=== PATIENT | female | born 1955 | race Caucasian/White ===

== ENCOUNTER 2016-12-12 08:47 | Inpatient (IN) ==
[2016-12-12] MEDS ORDERED: SODIUM CHLORIDE 0.9% 250 ML IV PRN (10:12)
[2016-12-12] MEDS ORDERED: traMADol 50 MG TABLET PO PRN (10:37)
[2016-12-12] MEDS: ALBUTEROL 2.5 MG/3 ML NEB RESP TX SCH ×3 (11:22→20:11)
[2016-12-12 11:27] LABS: Basophils % 0.2 % (0.0-0.8); Eosinophils # 0.2 10*3/uL (0.0-0.87); Eosinophils % 2.8 % (0.00-10.9); Immature Granulocytes % 0.5 %; Immature Granulocytes Absolute 0.03 #; Lymphocytes % 15.6 % (21.3-54.2); Mean Corpuscular HGB Conc 25.8 GM/DL (32-36); Mean Corpuscular Hemoglobin 17 PG (27-34); Mean Corpuscular Volume 64.1 FL (87-102); Mean Platelet Volume 9.2 FL (9.6-12.0); Monocytes # 0.6 10*3/uL (0.11-0.8); Monocytes % 9.6 % (1.7-12.7); Neutrophils # 4.4 10*3/uL (1.4-7.4); Neutrophils % 71.3 % (38.7-73.9); Platelet Count 378 10*3/uL (130-400); Red Blood Count 2.84 10*6/uL (3.8-5.5); Red Cell Distribution Width 21.5 % (9.3-17.3); White Blood Count 6.2 10*3/uL (4.5-13.71)
[2016-12-12 11:30] LABS: Hematocrit 18.2 VOL% (35.7-47.0); Hemoglobin 4.7 GM/DL (12.0-16.0)
[2016-12-12 11:31] LABS: Albumin 3.5 G/DL (3.4-5.0); Bilirubin,Total 0.4 MG/DL (0.2-1.0); Calcium 9.1 MG/DL (8.5-10.1); Osmolality,Calculated 276.5 MOS/KG (273-304); Total Protein 6.5 G/DL (6.4-8.3)
[2016-12-12 11:38] LABS: Free T4 (Free Thyroxine) 1.39 NG/DL (0.76-1.46); Thyroid Stimulating Hormone 0.349 uIU/ml (0.358-3.74)
[2016-12-12 11:40] LABS: Folate 17.8 NG/ML (5.4-24.0); Vitamin B12 259 PG/ML (211-911)
[2016-12-12 12:09] LABS: Elliptocytes Few; Hypochromasia 1+; Platelet Estimate Adequate
--- NOTE | 2016-12-12 12:22 | EKG Report ---
Stationary ECG Study [facility] Test Date: 12/12/2016 12:21:48 PM Pat Name: GILBERTO SANCHEZ Department: Room: 516 Gender: F [employer] Rec[employer]iter: : [id number] Requested by: Jonathan Metz Order Number: [id number] Reading MD: JOSI QUINTANILLA Intervals [place] Rate: 95 P: 42 ND: 163 QRS: 63 QRSD: 74 T: 53 QT: 324 QTc: 376 Interpretive Statements SINUS RHYTHM LOW QRS VOLTAGE IN PRECORDIAL LEADS Electronically Signed On 12-13-16 09:52:25 PROFESSOR/NURSE ANESTHETIST by JOSI QUINTANILLA [email or web address]
--- NOTE | 2016-12-12 12:37 | Pulmonology History & Physical ---
Assessment and Plan (1) Iron deficiency anemia Status: Acute Assessment and plan: Patient has severe anemia with an MCV of 64 and a hemoglobin of 5. Ferritin level was low at 3.5. This appears to be iron deficiency. Hematology is going to see her. She has not had any known bleeding. I will obtain GI consultation for endoscopy and probable CTs but will let them decide that. Current Visit: Yes (2) Bronchiolitis obliterans with organizing pneumonia Status: Acute Assessment and plan: This is stable on low dose every other day prednisone. 10 mg. Current Visit: Yes (3) Hypothyroidism (acquired) Status: Acute Assessment and plan: TSH is a little low. We will reduce Synthroid. Current Visit: Yes (4) Osteoporosis Status: Acute Assessment and plan: She has had osteoporotic fractures and kyphoplasty's. Current Visit: Yes 12 point system: reviewed and no additional remarkable complaints except as stated - Constitutional Constitutional: Present: fatigue, weight loss (8.4 lbs.) - Cardiovascular Cardiovascular: Present: dyspnea, dyspnea on exertion - Respiratory Respiratory: Present: cough, dyspnea, dyspnea on exertion - Musculoskeletal Musculoskeletal: Present: arthralgias History of Present Illness Chief complaint: fatigue History of present illness: Ms. Ruiz is a 61 year old female whom I follow in the office for bronchiolitis obliterans with organizing pneumonia. She is chronically on low-dose prednisone. She came in for a routine visit yesterday complaining of increased fatigue and dyspnea on exertion. She also had lost some weight. A CBC was done and she had a hemoglobin of 6 with a hematocrit of 20. MCV was low and it is suspected that she has severe iron deficiency anemia. She's not having any chest pain and has not had a recent cough or fever. Other problems include hypothyroidism corrected with medications. She has never been a smoker. She denies any black tarry stools or blood in her stools. She has not vomited up any blood. She's had a normal diet. She is not a vegetarian. Allergies Allergy/AdvReac Type Severity Reaction Status Date / Time Amoxicillin Allergy Verified 12/12/16 10:09 azithromycin [From Zithromax] Allergy Verified 12/12/16 10:09 Medical,Surgical,& Family Hx - Medical History Endocrine: History of: Thyroid Disorder Respiratory: History of: Respiratory Problems (BOOPS DISEASE) Musculoskeletal: History of: Osteoporosis - Family History Family History: Reports;: Family Diabetes (MOTHER AND FATHER), Family Heart Disease (MOTHER), Family Hypertension (FATHER AND SISTER) - Social History Smoking Status: Never smoker Frequency of Alcohol Use: None Results - Labs CBC & BMP: 12/12/16 10:40 12/12/16 10:40 Exam (Pulmonay) H&P - Constitutional Vitals: Period Temp Pulse Resp BP Sys/Diamond Pulse Ox Last 24 Hr 98.2 F-98.8 F 76-106 16-20 102-133/54-72 98-99 Exam: Systolic blood pressure 100. Pulse between 101 05. Vital signs otherwise normal. HEENT: Pupils react to light. Throat is clear. Conjunctiva are pale. Neck supple no bruits. Chest she has a few rhonchi in the right chest. Left lung is clear. Heart rate around 100 no murmurs. Abdomen soft nontender. Spleen tip is palpable. Bowel sounds present. Extremities no clubbing cyanosis or edema. Calves nontender.
[2016-12-12 12:42] LABS: Sedimentation Rate-Westergren 60 MM/HR (0-30)
--- NOTE | 2016-12-12 14:13 | Gastrointestinal Consult Note ---
<NaidaMarlen Lexii - Last Filed: 12/12/16 14:08> Assessment and Plan (1) Iron deficiency anemia Status: Acute Assessment and plan: 12/12-Hemoglobin 4.7 with fatigue and SOB x several weeks. Distant history of anemia in the past w/o transfusion. No prior endoscopy. No overt signs of bleeding. 8 pd wt loss x [address] of abdomen is pending at present time. Currently transfusing 2 units PRBC. Plan and addendum to follow by Dr Aguero. Current Visit: Yes History of Present Illness Chief complaint: Severe anemia History of present illness: Ms. Ruiz is a 61 year old female who presented to the clinic for followup with Dr Metz. She has a history of bronchiolitis obliterans with organizing pneumonia. She is on chronic Prednisone therapy for this and follows up with Dr Metz every 3 months. She states for the last several weeks she has not felt very well and has had some fatigue with increased SOB. She had no other symptoms that accompanied this. She states a couple of months ago she had some nausea onset, without vomiting, that lasted several weeks. She was unable to eat very much during this time and lost 8 pounds over a three month period. She states that she did regain her appetite and the nausea went away here recently. She denies any melena or hematochezia. Denies any fever, chills, night sweats. Has GERD but is controlled with OTC Zantac. Denies dysphagia. Denies NSAID use. She has been anemic one time before in the past but cannot recall why, stating she took oral iron for several weeks and then it went away. She was found in clinic to have a low hemoglobin and admitted to our facility for further workup. Upon admission, her hemoglobin was noted to be 4.7. She is currently receiving 2 units of PRBC. Further hemotologic workup is pending. Dr Schilling has been consulted. No prior history of endoscopy. Allergies Allergy/AdvReac Type Severity Reaction Status Date / Time Amoxicillin Allergy Verified 12/12/16 10:09 azithromycin [From Zithromax] Allergy Verified 12/12/16 10:09 Medical,Surgical,& Family Hx - Medical History Endocrine: History of: Thyroid Disorder Respiratory: History of: Respiratory Problems (BOOPS DISEASE) Musculoskeletal: History of: Osteoporosis - Family History Family History: Reports;: Family Diabetes (MOTHER AND FATHER), Family Heart Disease (MOTHER), Family Hypertension (FATHER AND SISTER) - Social History Smoking Status: Never smoker Frequency of Alcohol Use: None 12 point system: reviewed and no additional remarkable complaints except as stated - Constitutional Constitutional: Present: as per HPI, fatigue - EENT Eyes: Present: as per HPI Ears: Present: as per HPI Nose, mouth and throat: Present: as per HPI - Cardiovascular Cardiovascular: Present: as per HPI - Respiratory Respiratory: Present: as per HPI, dyspnea - Gastrointestinal Gastrointestinal: Present: as per HPI - Genitourinary Genitourinary: Present: as per HPI - Musculoskeletal Musculoskeletal: Present: as per HPI - Neurological Neurological: Present: as per HPI - Psychiatric Psychiatric: Present: as per HPI - Endocrine Endocrine: Present: as per HPI - Hematologic/Lymphatic Hematologic/Lymphatic: Present: as per HPI Exam - Constitutional Vitals: Period Temp Pulse Resp BP Sys/Diamond Pulse Ox Last 24 Hr 98.2 F-98.8 F 76-106 16-20 102-133/54-72 98-99 General appearance: normal weight, no acute distress - Head Head exam: Present: normal inspection, normocephalic - Eye Eye exam: Present: other (lids and conjunctiva unremarkable). Absent: scleral icterus - ENT ENT exam: Present: normal exam, normal oropharynx - Neck Neck exam: Present: normal inspection - Respiratory Respiratory exam: Present: clear to auscultation bilaterally. Absent: rales, rhonchi, wheezes - Cardiovascular Cardiovascular exam: Present: regular rate and rhythm. Absent: diastolic murmur , JVD, systolic murmur - GI/Abdominal GI/Abdominal exam: Present: normal bowel sounds, soft. Absent: ascites, distended, mass, organomegaly, tenderness - Extremities Exam Extremities exam: Present: normal inspection, full ROM - Back Exam Back exam: Present: normal inspection - Neurological Exam Neurological exam: Present: alert, oriented X3 - Psychiatric Psychiatric exam: Present: normal affect, normal mood - Skin Skin exam: Present: normal color, warm, dry Results - Labs CBC & BMP: 12/12/16 10:40 12/12/16 10:40 Lab Results: I have reviewed the past 24 hour labs <Franklyn Aguero - Last Filed: 12/12/16 18:29> History of Present Illness History of present illness: Ms. Mccaa is a 61 year old female Exam - Constitutional Vitals: Period Temp Pulse Resp BP Sys/Diamond Pulse Ox Last 24 Hr 97.8 F-98.9 F 67-106 16-94 102-133/54-72 98-99 Results - Labs CBC & BMP: 12/12/16 10:40 12/12/16 10:40
--- NOTE | 2016-12-12 16:19 | Hematology Consult ---
History of Present Illness - Consult Narrative History of present illness: - This is a chart review note only. I will see patient first thing in the morning - Pt has iron deficiency anemia - GI work-up should be the first step in evaluating this - There is no evidence of hemolysis or underlying bone marrow disorder - Hb electrophoresis is pending - Agree with PRBC transfusion - Would also place on PO FeSO4 - Would cover with PPI while GI eval is pending CC: Jonathan Metz MD - Home Medications and Allergies Allergies/Adverse Reactions: Allergies Allergy/AdvReac Type Severity Reaction Status Date / Time Amoxicillin Allergy Verified 12/12/16 10:09 azithromycin [From Zithromax] Allergy Verified 12/12/16 10:09 Medical,Surgical,& Family Hx - Medical History Endocrine: History of: Thyroid Disorder Respiratory: History of: Respiratory Problems (BOOPS DISEASE) Musculoskeletal: History of: Osteoporosis - Family History Family History: Reports;: Family Diabetes (MOTHER AND FATHER), Family Heart Disease (MOTHER), Family Hypertension (FATHER AND SISTER) - Social History Smoking Status: Never smoker Frequency of Alcohol Use: None Exam - Constitutional Vitals: Period Temp Pulse Resp BP Sys/Diamond Pulse Ox Last 24 Hr 97.8 F-98.9 F 76-106 16-94 102-133/54-72 98-99 Results - Labs CBC & BMP: 12/12/16 10:40 12/12/16 10:40
[2016-12-12] MEDS: PANTOPRAZOLE 40 MG VIAL IV SCH (17:30)
[2016-12-12 17:44] LABS: Apearance,Urine CLEAR (Clear); Bilirubin,Urine Negative (Negative); Blood, Urine Negative (Negative); Glucose,Urine (UA) Negative (Negative); Ketones,Urine Negative (Negative); Nitrite,Urine Negative (Negative); Protein,Urine Negative; RBC,Urine <1 /HPF (0-4); Urine Color Straw (Yellow); Urine Specific Gravity 1.008 (1.001-1.035); Urine Urobilinogen < 2.0 EU/DL (0.2-1.0); WBC,Urine <1 /HPF (0-6)
[2016-12-12] MEDS: FERROUS SULFATE 325 MG TABLET PO SCH (20:11)
[2016-12-12] MEDS: CALCIUM (CARBONATE) 600 MG TABLET PO SCH (20:11)
--- NOTE | 2016-12-13 05:09 | Hematology Consult ---
Assessment and Plan - Time spent with patient Time spent with patient: Greater than 30 minutes (1) Iron deficiency anemia Status: Acute Assessment and plan: At this point in time she needs full GI workup for her iron deficiency anemia. She has been on chronic prednisone therapy and could very well have severe gastritis. She has received 2 units of blood and states that she does feel somewhat better after this. I have also started her on oral iron replacement. A CT scan has been ordered for later this morning as well. If her upper endoscopy today is nonrevealing, she will likely have a lower endoscopy tomorrow morning. I will continue to follow her with you while she is in the hospital and make recommendations as needed. Current Visit: Yes (2) Bronchiolitis obliterans with organizing pneumonia Status: Acute Current Visit: Yes (3) Hypothyroidism (acquired) Status: Acute Current Visit: Yes (4) Osteoporosis Status: Acute Current Visit: Yes History of Present Illness - Consult Narrative History of present illness: Ms. Ruiz is a 61 year old female with a history of BOOP who has been on chronic prednisone therapy by Dr. Metz for this. She presented to his clinic yesterday complaining of increased fatigue and shortness of breath and was found to have a hemoglobin less than 5. Further workup revealed that this was iron deficiency anemia. All other cell lines were normal. She reports that she has been on iron previously for a few weeks. She does not recall when. She has no history of GI endoscopies. She does have GERD but does not take an intensive acid suppression medication. She has some mild weight loss over the past few months. She has not noticed any dark tarry stool or bright red blood per rectum. She is no longer having menses. CC: Jonathan Metz MD - Home Medications and Allergies Home Medications: Home Medications Medication Instructions Recorded Confirmed Type Albuterol Neb [Proventil Neb] 2.5 mg RESP TX BID 12/12/16 12/12/16 History Budesonide/Formoterol 160-4.5 2 puff INH BID 12/12/16 12/12/16 History [Symbicort 160-4.5] Calcium (Carbonate) [Caltrate 600] 600 mg PO DAILY 12/12/16 12/12/16 History Cholecalciferol (Vitamin D3) 2,000 unit PO DAILY 12/12/16 12/12/16 History [Vitamin D3] HYDROcodone/ACETAMIN 5-325 [[place] 1 tablet PO BID PRN 12/12/16 12/12/16 History 5-325] Levothyroxine Tab [Synthroid Tab] 75 mcg PO DAILY@0700 12/12/16 12/12/16 History Potassium Chloride 10 meq PO DAILY 12/12/16 12/12/16 History predniSONE TAB [PredniSONE] 10 mg PO QOTHER DAY 12/12/16 12/12/16 History Allergies/Adverse Reactions: Allergies Allergy/AdvReac Type Severity Reaction Status Date / Time Amoxicillin Allergy Verified 12/12/16 10:09 azithromycin [From Zithromax] Allergy Verified 12/12/16 10:09 Medical,Surgical,& Family Hx - Medical History Endocrine: History of: Thyroid Disorder Respiratory: History of: Respiratory Problems (BOOPS DISEASE) Musculoskeletal: History of: Osteoporosis - Family History Family History: Reports;: Family Diabetes (MOTHER AND FATHER), Family Heart Disease (MOTHER), Family Hypertension (FATHER AND SISTER) - Social History Smoking Status: Never smoker Frequency of Alcohol Use: None 12 point system: reviewed and no additional remarkable complaints except as stated - Constitutional Constitutional: Present: fatigue, weakness, weight loss. Absent: night sweats - EENT Nose, mouth and throat: Present: dizziness - Respiratory Respiratory: Present: cough, dyspnea - Gastrointestinal Gastrointestinal: Present: constipation, heartburn. Absent: abdominal pain, diarrhea, dysphagia, hematemesis, hematochezia, melena, jaundice Exam - Constitutional Vitals: Period Temp Pulse Resp BP Sys/Diamond Pulse Ox Last 24 Hr 97.8 F-99.5 F 67-106 16-94 102-133/52-72 96-100 General appearance: normal weight, no acute distress - Head Head Exam: Present: normocephalic, atraumatic - Eye Eye Exam: Present: EOMI Pupils: Present: PERRL - ENT ENT exam: Present: normal exam, normal oropharynx - Neck Neck exam: Absent: lymphadenopathy, tenderness - Respiratory Respiratory exam: Present: CTAB. Absent: wheezes - Cardiovascular Cardiovascular exam: Present: RRR. Absent: JVD, systolic murmur - GI/Abdominal GI/Abdominal exam: Present: soft. Absent: ascites, distended, firm, mass, tenderness - Neurological Exam Neurological exam: Present: alert, oriented X3 - Psychiatric Psychiatric exam: Present: normal affect, normal mood - Skin Skin exam: Present: warm, dry Results - Labs CBC & BMP: 12/12/16 10:40 12/12/16 10:40 Lab Results: I have reviewed the past 24 hour labs
[2016-12-13] MEDS: LEVOTHYROXINE 75 MCG TABLET PO SCH (06:02)
[2016-12-13 06:12] LABS: Basophils % 0.2 % (0.0-0.8); Eosinophils # 0.3 10*3/uL (0.0-0.87); Eosinophils % 4.9 % (0.00-10.9); Hematocrit 27.6 VOL% (35.7-47.0); Hemoglobin 7.9 GM/DL (12.0-16.0); Immature Granulocytes % 0.2 %; Immature Granulocytes Absolute 0.01 #; Lymphocytes # 1.4 10*3/uL (1.4-4.0); Lymphocytes % 24.4 % (21.3-54.2); Mean Corpuscular HGB Conc 28.6 GM/DL (32-36); Mean Corpuscular Hemoglobin 20 PG (27-34); Mean Corpuscular Volume 70.4 FL (87-102); Mean Platelet Volume 9.4 FL (9.6-12.0); Monocytes # 0.9 10*3/uL (0.11-0.8); Monocytes % 14.8 % (1.7-12.7); Neutrophils # 3.2 10*3/uL (1.4-7.4); Neutrophils % 55.5 % (38.7-73.9); Platelet Count 321 10*3/uL (130-400); Red Blood Count 3.92 10*6/uL (3.8-5.5); Red Cell Distribution Width 24.8 % (9.3-17.3); White Blood Count 5.7 10*3/uL (4.5-13.71)
[2016-12-13 06:39] LABS: Hypochromasia 1+
[2016-12-13 06:40] LABS: Microcytosis 2+; Ovalocytes Few; Spherocytes Few; Target Cells Few
[2016-12-13 06:41] LABS: Platelet Estimate Normal
[2016-12-13] MEDS: ALBUTEROL 2.5 MG/3 ML NEB RESP TX SCH ×4 (06:54→19:17)
[2016-12-13] MEDS ORDERED: LEVOTHYROXINE 88 MCG TABLET PO SCH (07:00)
[2016-12-13 07:18] LABS: Hemoglobin A1 (Alkaline) 97.8 % (96.5-98.5); Hemoglobin A2 (Alkaline) 2.2 % (1.5-3.5)
--- NOTE | 2016-12-13 08:31 | Pulmonology Progress Note ---
Pulmonary - PN: Subj Interval history: This 61-year-old white female was admitted yesterday with a hemoglobin of 4.7. She's been given 2 units of packed cells. The severe anemia was causing her to be short of breath on exertion. She does not have any history of visualized blood in stool or black tarry stools. She's not had hematemesis. There's been no fever. Studies indicate that this is a severe iron deficiency anemia. She is getting an abdominal CT scan and an EGD today. Probably will need a colonoscope tomorrow unless a definitive source is found today. She feels better after the transfusion. Hematocrit has come up from 18-27. Exam (Progress Note) - Constitutional Vitals: Period Temp Pulse Resp BP Sys/Diamond Pulse Ox Last 24 Hr 97.8 F-99.5 F 67-106 16-94 102-133/52-72 96-100 Exam: Patient's alert. She is less pale. Vital signs normal. Pupils react to light. Throat is clear. Neck supple no bruits. Chest a few rhonchi and right upper lobe otherwise clear. Heart normal rate rhythm no murmurs no rubs no gallops. Abdomen soft nontender spleen tip is palpable. Bowel sounds present. Extremities no clubbing cyanosis or edema. Calves nontender. Results - Labs CBC & BMP: 12/13/16 06:02 12/12/16 10:40 Lab Results: I have reviewed the past 24 hour labs Assessment and Plan (1) Iron deficiency anemia Status: Acute Assessment and plan: Patient has severe anemia with an MCV of 64 and a hemoglobin of 5. Ferritin level was low at 3.5. This appears to be iron deficiency. Hematology is going to see her. She has not had any known bleeding. I will obtain GI consultation for endoscopy and probable CTs but will let them decide that. 12/13/[address] to evaluate because of severe iron deficiency anemia. Current Visit: Yes (2) Bronchiolitis obliterans with organizing pneumonia Status: Acute Assessment and plan: This is stable on low dose every other day prednisone. 10 mg. 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 Certainly could have GI side effects from this. She has not noted any melena however. Current Visit: Yes (3) Hypothyroidism (acquired) Status: Acute Assessment and plan: TSH is a little low. We will reduce Synthroid. Current Visit: Yes (4) Osteoporosis Status: Acute Assessment and plan: She has had osteoporotic fractures and kyphoplasty's. Current Visit: Yes
[2016-12-13] MEDS ORDERED: LIDOCAINE 2% 5 ML VIAL ONE (09:24)
[2016-12-13] MEDS ORDERED: PROPOFOL 200 MG/20 ML VIAL IV ONE (09:24)
--- NOTE | 2016-12-13 09:24 | History and Physical Update ---
History and Physical Update - Physical Exam Mental Status: alert and oriented Heart: regular rate and rhythm Lung: clear to auscultation Abdomen: within normal limits Vitals: within normal limits
--- NOTE | 2016-12-13 09:33 | Operative Note ---
Date of procedure: 12/13/16 Pre-op diagnosis: iron deficiency anemia Procedure: EGD 61-year-old female with BOOP with iron deficiency anemia now for upper endoscopy to further evaluate. Informed consent was obtained the patient She was sedated with Mac anesthesia per anesthesia protocol. Patient placed in left lateral decubitus position the Olympus flexible video upper endoscope was inserted into the oral cavity under direct vision the esophagus was intubated. Findings: Esophagus-normal proximal mid esophageal mucosa distal esophagus with large hiatal hernia and associated Song lesions. A proximally 6 cm stomach lies in her chest. Stomach-a large hernia as discussed with Song erosions no other gastric abnormalities are seen throughout the body fundus cardia of the stomach to direct retroflex views antrum is normal. Pylorus-normal Duodenum-normal from above the duodenum to the proximal jejunum no AVMs no ulcerations were identified. The procedure terminated patient our procedure well she's discharge recovery in good condition Postop diagnosis: #1 large hiatal hernia with Song erosions-likely source for chronic GI blood loss. Continue with iron replacement therapy proceed with colonoscopy to complete iron deficiency workup. If anemia proves refractory to iron replacement May need to consider fundoplication. Anesthesia: MAC Surgeon / Physician: Franklyn Aguero Estimated blood loss: none Specimens: none sent Condition: stable Disposition: post procedure unit Results - Labs CBC & BMP: 12/13/16 06:02 12/12/16 10:40 Discharge Plan - Discharge Medications No Action Albuterol Neb [Proventil Neb] 2.5 mg RESP TX BID Calcium (Carbonate) [Caltrate 600] 600 mg PO DAILY Budesonide/Formoterol 160-4.5 [Symbicort 160-4.5] 2 puff INH BID predniSONE TAB [PredniSONE] 10 mg PO QOTHER DAY HYDROcodone/ACETAMIN 5-325 [[place]men[place] 5-325] 1 tablet PO BID PRN PRN Reason: Pain Cholecalciferol (Vitamin D3) [Vitamin D3] 2,000 unit PO DAILY Levothyroxine Tab [Synthroid Tab] 75 mcg PO DAILY@0700 Potassium Chloride 10 meq PO DAILY - Follow Up or Referral - Forms/Instructions
--- NOTE | 2016-12-13 09:50 | Anesthesia ---
Anesthesia Post OP - Post Ansesthetic Evaluation Patient seen in post op: Yes Resp: within normal limits CV: within normal limits Mental: within normal limits Temp: within normal limits Ruwr-[id number]-Vanbvujyu: within normal limits Nausea and Vomiting: within normal limits Pain: within normal limits
[2016-12-13] MEDS: ONDANSETRON 4 MG/2 ML VIAL IV PRN (10:25)
[2016-12-13] MEDS: CALCIUM (CARBONATE) 600 MG TABLET PO SCH ×2 (11:09→20:38)
[2016-12-13] MEDS: POTASSIUM CHLORIDE 10 MEQ TABLET PO SCH (11:09)
[2016-12-13] MEDS: PANTOPRAZOLE 40 MG VIAL IV SCH ×2 (11:09→15:21)
[2016-12-13] MEDS: predniSONE 10 MG TABLET PO SCH (11:09)
[2016-12-13] MEDS: FLUTICASONE 50 MCG NASAL SPRAY 16 GM BOTTLE BOTH NARES SCH (11:09)
[2016-12-13] MEDS: BUDESONIDE/FORMOTEROL 160-4.5 INHALER 6 GM INH SCH (11:09)
[2016-12-13] MEDS: FEXOFENADINE 180 MG TABLET PO SCH (11:09)
[2016-12-13] MEDS: FERROUS SULFATE 325 MG TABLET PO SCH ×3 (11:09→20:38)
[2016-12-13] MEDS: CHOLECALCIFEROL 1,000 UNIT TABLET PO SCH (11:10)
[2016-12-13] MEDS ORDERED: BISACODYL 5 MG TABLET PO ONE (12:00)
[2016-12-13] MEDS ORDERED: POLYETHYLENE GLYCOL POWDER 255 GM BOTTLE PO ONE (14:00)
--- NOTE | 2016-12-13 14:24 | CT Report ---
CT abdomen pelvis wo/w con Indication: Deficiency anemia. Weight loss. Splenomegaly. CT ABDOMEN AND PELVIS WITH AND WITHOUT CONTRAST DLP: 482 mGy*cm Comparison: None Technique: Axial CT images of the abdomen and pelvis were obtained pre-and post IV contrast administration. Oral contrast was administered. Omnipaque 350, 100 cc. Abdomen: Kyphoplasty T11 and T12, osteoporosis, and dextroscoliosis of the lumbar spine noted. Compression fractures of T10 and L1 are present and appear old. Neither is resulting in significant loss of vertebral body height. There are some scattered calcifications present in both kidneys, and appear to involve the pyramids as opposed to being actual urolithiasis. They demonstrate hazy margins and are indistinct. There is, however, one more pronounced calcification in the right urinary collecting system is better defined, measuring 6 x 3 mm in size. No hydronephrosis or hydroureter on either side. Postcontrast shows symmetric renal enhancement without focal mass identified. Very large hiatal hernia is present. Heart size is normal. Calcified pleural plaque or a surgical staple line is shown posterior right costophrenic sulcus. There is pleural thickening on the right as well, with parenchymal bands involving the right lung base. Some nodular densities are noted as well, largest being 8 mm in size. Mild scarring involves the left lung base which is otherwise generally clear. Mediastinum appears shifted rightward. Liver, gallbladder, spleen and adrenal glands are within normal limits. Multiple cystic lesions are present within the pancreas, largest being mid pancreatic tail, 19 x 19 mm in size. No bowel obstruction. No free fluid, free air or lymphadenopathy. Aorta is not aneurysmal despite the presence of calcified atheromatous disease. Pelvis: Urinary bladder and rectosigmoid colon are within normal limits. Uterus is absent. No pelvic mass. Thickening of the wall of the terminal ileum is present with thickened mucosal folds. No mesenteric inflammation shown. Impression: 1. Thickened terminal ileum consistent with focal typhlitis/enteritis/colitis. Is there history of inflammatory bowel disease? Other possibilities include infection or infiltrative process including neoplasm. 2. Vague calcifications involving the renal pyramids, and one right-sided kidney stone. No obstructive uropathy on either side. 3. Multiple cystic lesions within the pancreas, largest 19 x 19 mm in size. Although likely benign, cystic neoplasm cannot be excluded. 4. Either calcified pleural plaque or previous surgery right lung base. Significant interstitial lung disease involving the right lung base with thick parenchymal bands, pleural thickening and subcentimeter nodules, whereas the left lung base is relatively clear. Right-sided volume loss with rightward shift of mediastinum. 5. Very large hiatal hernia. 6. T11 and T12 kyphoplasty. Old T10 and L1 compression fractures. Osteopenia. PROCEDURE INTERPRETED AT [facility] DEPARTMENT OF RADIOLOGY Final Report Signed by: Juancarlos Alonzo M.D.
[2016-12-14] MEDS ORDERED: MAGNESIUM CITRATE 300 ML BOTTLE PO ONE (01:05)
[2016-12-14] MEDS: ONDANSETRON 4 MG/2 ML VIAL IV PRN (02:43)
[2016-12-14 05:09] LABS: Basophils % 0.2 % (0.0-0.8); Eosinophils # 0.3 10*3/uL (0.0-0.87); Eosinophils % 4.8 % (0.00-10.9); Hematocrit 28.3 VOL% (35.7-47.0); Immature Granulocytes % 0.2 %; Immature Granulocytes Absolute 0.01 #; Lymphocytes # 0.6 10*3/uL (1.4-4.0); Lymphocytes % 10.8 % (21.3-54.2); Mean Corpuscular HGB Conc 28.3 GM/DL (32-36); Mean Corpuscular Hemoglobin 20 PG (27-34); Mean Corpuscular Volume 70.8 FL (87-102); Mean Platelet Volume 9.1 FL (9.6-12.0); Monocytes # 0.8 10*3/uL (0.11-0.8); Monocytes % 14.7 % (1.7-12.7); Neutrophils # 3.7 10*3/uL (1.4-7.4); Neutrophils % 69.3 % (38.7-73.9); Platelet Count 289 10*3/uL (130-400); White Blood Count 5.4 10*3/uL (4.5-13.71)
[2016-12-14 05:42] LABS: Elliptocytes Few; Hypochromasia 1+; Ovalocytes Slight; Platelet Estimate Normal
[2016-12-14 05:43] LABS: Microcytosis 1+
[2016-12-14 06:24] LABS: Cancer Antigen 19-9 47.2 U/ML (0-37); Carcinoembryonic Antigen 0.8 NG/ML (0.0-5.0)
[2016-12-14] MEDS: LEVOTHYROXINE 75 MCG TABLET PO SCH ×2 (06:27→13:21)
[2016-12-14] MEDS: ALBUTEROL 2.5 MG/3 ML NEB RESP TX SCH ×4 (07:15→19:40)
--- NOTE | 2016-12-14 08:55 | Pulmonology Progress Note ---
Pulmonary - PN: Subj Interval history: This 61-year-old white female was admitted yesterday with a hemoglobin of 4.7. She's been given 2 units of packed cells. The severe anemia was causing her to be short of breath on exertion. She does not have any history of visualized blood in stool or black tarry stools. She's not had hematemesis. There's been no fever. Studies indicate that this is a severe iron deficiency anemia. She is getting an abdominal CT scan and an EGD today. Probably will need a colonoscope tomorrow unless a definitive source is found today. She feels better after the transfusion. Hematocrit has come up from 18-27. 12/14/2016 gastroscope indicated a large hiatal hernia with evidence of leak from an ulceration there. Abdominal CT showed some thickening in the cecal area. She is for colonoscopy today. She feels better and her hematocrit is fairly stable around 27. Probably able to go home tomorrow with oral iron. That will be depending on what the colonoscope shows today. Exam (Progress Note) - Constitutional Vitals: Period Temp Pulse Resp BP Sys/Diamond Pulse Ox Last 24 Hr 97.7 F-99.7 F 70-106 16-24 90-143/53-78 90-100 Exam: Patient's alert. She is less pale. Vital signs normal. Pupils react to light. Throat is clear. Neck supple no bruits. Chest a few rhonchi and right upper lobe otherwise clear. Heart normal rate rhythm no murmurs no rubs no gallops. Abdomen soft nontender spleen tip is palpable. Bowel sounds present. Extremities no clubbing cyanosis or edema. Calves nontender. Little change from yesterday. Results - Labs CBC & BMP: 12/14/16 04:57 12/12/16 10:40 Lab Results: I have reviewed the past 24 hour labs Assessment and Plan (1) Iron deficiency anemia Status: Acute Assessment and plan: Patient has severe anemia with an MCV of 64 and a hemoglobin of 5. Ferritin level was low at 3.5. This appears to be iron deficiency. Hematology is going to see her. She has not had any known bleeding. I will obtain GI consultation for endoscopy and probable CTs but will let them decide that. 12/13/[address] to evaluate because of severe iron deficiency anemia. 12/14/2016 apparently due to GI blood loss. Continuing with GI evaluation. Will need iron long-term. Current Visit: Yes (2) Bronchiolitis obliterans with organizing pneumonia Status: Acute Assessment and plan: This is stable on low dose every other day prednisone. 10 mg. 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 Certainly could have GI side effects from this. She has not noted any melena however. 12/14/[address] showed some abnormalities in the right lung base. This is previously known from her BOOP. Current Visit: Yes (3) Hypothyroidism (acquired) Status: Acute Assessment and plan: TSH is a little low. We will reduce Synthroid. Current Visit: Yes (4) Osteoporosis Status: Acute Assessment and plan: She has had osteoporotic fractures and kyphoplasty's. Current Visit: Yes (5) Hiatal hernia Status: Acute Assessment and plan: We'll need antireflux therapy. Current Visit: Yes (6) Esophageal ulcer with bleeding Status: Acute Assessment and plan: Patient on Protonix. Current Visit: Yes
--- NOTE | 2016-12-14 09:13 | Hematology Progress Note ---
Assessment and Plan (1) Bronchiolitis obliterans with organizing pneumonia Status: Acute Current Visit: Yes (2) Hypothyroidism (acquired) Status: Acute Current Visit: Yes (3) Osteoporosis Status: Acute Current Visit: Yes Hematology Subjective PN Interval history: Patient feels well today. She is scheduled for colonoscopy later this morning. I discussed her CT findings with her yesterday that included cyst on her pancreas and thickening of her terminal ileum. She is having a CT scan today to evaluate the terminal ileum. The cyst on her pancreas appear benign but there was a slight increase in her CA-19-9 level. This is definitely not a specific test but does at least make me want to repeat her CT scan in 2 months. If her colonoscopy is negative then the only recommendations I have at this time is to send her out on oral replacement iron. I will set her up for a repeat CT scan in 2 months and see me in clinic on the same day as her CT scan. If the cyst show any concerning changes over the next 2 months we will have to consider a percutaneous biopsy if feasible. Exam - Constitutional Vitals: Period Temp Pulse Resp BP Sys/Diamond Pulse Ox Last 24 Hr 97.7 F-99.7 F 70-106 16-24 90-143/53-78 90-100 Results - Labs CBC & BMP: 12/14/16 04:57 12/12/16 10:40
[2016-12-14] MEDS: CALCIUM (CARBONATE) 600 MG TABLET PO SCH ×2 (10:49→20:31)
[2016-12-14] MEDS: FERROUS SULFATE 325 MG TABLET PO SCH ×4 (10:49→20:31)
[2016-12-14] MEDS ORDERED: PROPOFOL 200 MG/20 ML VIAL IV ONE (11:30)
[2016-12-14] MEDS ORDERED: LIDOCAINE 2% 5 ML VIAL ONE (11:30)
--- NOTE | 2016-12-14 12:17 | Anesthesia ---
Anesthesia Post OP - Post Ansesthetic Evaluation Patient seen in post op: Yes Resp: within normal limits CV: within normal limits Mental: within normal limits Temp: within normal limits [id number]: within normal limits Nausea and Vomiting: within normal limits Pain: within normal limits
--- NOTE | 2016-12-14 12:21 | Operative Note ---
Date of procedure: 12/14/16 Pre-op diagnosis: Iron deficiency anemia Procedure: Colonoscopy with polypectomy with extended time 61-year-old female with iron deficiency anemia now for colonoscopy to further evaluate. She has never had a code alluded to before. Informed consent was obtained for patient She was sedated with MAC anesthesia per anesthesia protocol. Patient placed in lateral decubitus position digital exam was normal the Olympus flexible video colonoscope was inserted into the anal canal advanced under direct vision to the level of the cecum. Findings: Prep was fair with limited visibility due to retained stool. There is significant tortuosity of the colon with extended time procedure Cecum-normal Terminal ileum-normal Ascending colon-normal was limited visibility due to prep Transverse colon-8 mm polyp hot biopsy fulgurated otherwise normal with limitation of prep Descending colon-diverticulosis otherwise normal limitation of prep Sigmoid colon-diverticulosis limited visibility due to prep Rectum-normal to direct and retroflexed views. The procedure terminated placed our procedure well she is discharged in good condition Postop diagnosis: 1. Colon [id number]-mv polyp 2. Redundant colon-use MiraLAX as needed maintain adequate fiber and fluid intake 3. Diverticulosis maintain adequate fiber fluid intake 4. Check small bowel series to complete workup for her iron deficiency anemia. This can be done as outpatient if desired. If no additional findings are noted that it is likely her anemia is related to her large hiatal hernia which hopefully can be managed with oral iron replacement if not consideration of fundoplication may be needed. Anesthesia: MAC Surgeon / Physician: Franklyn Aguero Estimated blood loss: none Specimens: other (Transverse colon polyp) Condition: stable Disposition: post procedure unit Results - Labs CBC & BMP: 12/14/16 04:57 12/12/16 10:40 Discharge Plan - Discharge Medications No Action Albuterol Neb [Proventil Neb] 2.5 mg RESP TX BID Calcium (Carbonate) [Caltrate 600] 600 mg PO DAILY Budesonide/Formoterol 160-4.5 [Symbicort 160-4.5] 2 puff INH BID predniSONE TAB [PredniSONE] 10 mg PO QOTHER DAY HYDROcodone/ACETAMIN 5-325 [[place] 5-325] 1 tablet PO BID PRN PRN Reason: Pain Cholecalciferol (Vitamin D3) [Vitamin D3] 2,000 unit PO DAILY Levothyroxine Tab [Synthroid Tab] 75 mcg PO DAILY@0700 Potassium Chloride 10 meq PO DAILY - Follow Up or Referral Follow Up: Ulysses Schilling MD [Physician] - - Forms/Instructions
--- NOTE | 2016-12-14 12:37 | Event Note ---
CT scan was reviewed and notation of pancreatic cyst and mild elevation of her CA-19-9 are noted. I do not suspect that these are of clinical significance however continue monitoring for change by CT scan and worsening of her CA-19-9 may prompt more evaluation either with endoscopic ultrasound and/or surgical biopsy. Would recommend repeat CT in 2 months and repeat of her CA-19-9. I believe Dr. Rock has scheduled these to be done and followed by him.
[2016-12-14] MEDS: POTASSIUM CHLORIDE 10 MEQ TABLET PO SCH (13:20)
[2016-12-14] MEDS: PANTOPRAZOLE 40 MG VIAL IV SCH (13:21)
[2016-12-14] MEDS: CHOLECALCIFEROL 1,000 UNIT TABLET PO SCH (13:21)
[2016-12-14] MEDS: BUDESONIDE/FORMOTEROL 160-4.5 INHALER 6 GM INH SCH (13:21)
[2016-12-14] MEDS: predniSONE 10 MG TABLET PO SCH (13:21)
[2016-12-14] MEDS: FEXOFENADINE 180 MG TABLET PO SCH (13:21)
[2016-12-14] MEDS: FLUTICASONE 50 MCG NASAL SPRAY 16 GM BOTTLE BOTH NARES SCH (13:39)
[2016-12-15] MEDS: LEVOTHYROXINE 75 MCG TABLET PO SCH ×2 (06:08→10:30)
[2016-12-15 07:08] VITALS: BP 88/46
[2016-12-15] MEDS: ALBUTEROL 2.5 MG/3 ML NEB RESP TX SCH (07:20)
--- NOTE | 2016-12-15 10:15 | Discharge Summary ---
Hospital Course - Hospital Course Hospital Course: This 61-year-old white female came to my office on December 11 complaining of worsening dyspnea. I'll follow her for bronchiolitis obliterans and organizing pneumonia and she stays on a low dose of prednisone. A CBC that was done in the office showed hematocrit of 20 and hemoglobin of 6. We arranged for her to be admitted the following day. At the hospital her hemoglobin was 4.7 hematocrit was 18 and she had a low MCV consistent with iron deficiency anemia. Ferritin was also low. She was transfused 2 units of packed cells with her hematocrit coming up to 27 and was 28 this morning. She had an abdominal CT that was unremarkable except for a cyst showing on her pancreas. Dr. Schilling and Dr. Aguero have recommended repeating a CT in 2 months there. I do not get the impression that it is very suspicious however. There was thickening of the wall of the cecal area. Patient underwent an EGD with findings of a large hiatal hernia with a Song erosion. This was felt to be likely the source of the GI blood loss. Patient also underwent colonoscope with removal of one small polyp otherwise no findings that would fit with GI blood loss. She did have some diverticulosis but no evidence of any blood in the colon. She had a small bowel series this morning and is still down there at present. We don't have the report yet from that. Diagnosis - Discharge Diagnosis (1) Iron deficiency anemia Status: Acute (2) Bronchiolitis obliterans with organizing pneumonia Status: Acute (3) Hypothyroidism (acquired) Status: Acute (4) Osteoporosis Status: Acute (5) Hiatal hernia Status: Acute (6) Esophageal ulcer with bleeding Status: Acute Specialty Discharge - Follow Up or Referrals Follow up with: Ulysses Schilling MD [Physician] - 02/06/17 12:15 pm (The CT will be 8am and check in at admission at [facility]. do not eat or drink anything after midnight the day before the CT.) Discharge Plan - Discharge Data Disposition: Disch To Home/Self Care Condition at Discharge: Stable Discharge Diet: advance to your usual diet Activity: resume usual activities as tolerated Hygiene: no restrictions Weight Bearing at Discharge: full weight bearing Driving: no restrictions Contact your physician if you experience:: Bleeding - Discharge Medications New Albuterol Neb [Proventil Neb] 2.5 mg RESP TX RT QID nebulization solution Ferrous Sulfate Tab [Feosol Original Tab] 325 mg PO TID #90 tablet Pantoprazole Tab [Protonix Tab] 40 mg PO DAILY #30 tablet Budesonide/Formoterol 160-4.5 [Symbicort 160-4.5] 2 puff INH DAILY inhaler Calcium (Carbonate) [Caltrate 600] 600 mg PO BID tablet Cholecalciferol [Vitamin D3] 4,000 unit PO DAILY tablet Fexofenadine [Tammy] 180 mg PO DAILY tablet Fluticasone 50 Mcg Nasal [place] [Flonase Nasal [place]] 1 spray BOTH NARES DAILY nasal spray HYDROcodone/ACETAMIN 5-325 [[place] 5-325] 0.5 tablet PO Q4H PRN #0 tablet PRN Reason: Pain Moderate (4-7) Levothyroxine Tab [Synthroid Tab] 75 mcg PO DAILY@0700 tablet Potassium Chloride Cap/Tab [[place]] 10 meq PO DAILY tablet predniSONE TAB [PredniSONE] 10 mg PO DAILY tablet Continue Albuterol Neb [Proventil Neb] 2.5 mg RESP TX BID Calcium (Carbonate) [Caltrate 600] 600 mg PO DAILY Budesonide/Formoterol 160-4.5 [Symbicort 160-4.5] 2 puff INH BID predniSONE TAB [PredniSONE] 10 mg PO QOTHER DAY HYDROcodone/ACETAMIN 5-325 [[place] 5-325] 1 tablet PO BID PRN PRN Reason: Pain Cholecalciferol (Vitamin D3) [Vitamin D3] 2,000 unit PO DAILY Levothyroxine Tab [Synthroid Tab] 75 mcg PO DAILY@0700 Potassium Chloride 10 meq PO DAILY - Follow Up or Referral Follow Up: Ulysses Schilling MD [Physician] - 02/06/17 12:[address] ([address] will be 8am and check in at admission at [facility]. do not eat or drink anything after midnight the day before the CT.) Jonathan Metz MD [Physician] - 1 Month (CBC, CXR, BMP) - Forms/Instructions Exam - Constitutional Vitals: Period Temp Pulse Resp BP Sys/Diamond Pulse Ox Last 24 Hr 97.8 F-100.7 F 71-105 14-20 87-106/46-66 92-100 Exam: Patient's alert. She is less pale. Vital signs normal. Pupils react to light. Throat is clear. Neck supple no bruits. Chest a few rhonchi and right upper lobe otherwise clear. Heart normal rate rhythm no murmurs no rubs no gallops. Abdomen soft nontender spleen tip is palpable. Bowel sounds present. Extremities no clubbing cyanosis or edema. Calves nontender. Little change from yesterday. Discharge Results Procedures and tests throughout hospitalization: Pending Orders 12/12/16 10:14 Occult Blood, Stool Routine 12/15/16 04:00 [place] small bowel series IN AM - Imaging and Cardiology Procedure: CT Abdomen and Pelvis: report reviewed by me (report noted. Cyst in pancreas noted. Thickening of cecal area noted.) DS: Provider Date of admission: 12/12/16 09:36 Primary care physician: . No PCP Attending physician on admission: Jonathan Metz MD Consults: 12/12/16 11:33 Consult to Physician [CONS] Routine Comment: ANEMIA Consulting Provider: Ulysses Schilling Person Notified: DENISSE Date Notified: 12/12/16 Time Notified: 10:00 12/12/16 12:45 Consult to Physician [CONS] Routine Comment: severe iron deficiency anemia, 8 pound weight loss Consulting Provider: Franklyn Aguero Consult to Specialist Group: Gastroenterology When should Consulting Provider be notified: Now Person Notified: Simran Date Notified: 12/12/16 Time Notified: 13:02 Discharging clinician: Jonathan Metz MD Expected date of discharge: 12/15/16
[2016-12-15] MEDS ORDERED: BISACODYL 5 MG TABLET PO ONE (10:29)
[2016-12-15] MEDS: FERROUS SULFATE 325 MG TABLET PO SCH (10:30)
[2016-12-15] MEDS: CHOLECALCIFEROL 1,000 UNIT TABLET PO SCH (10:30)
[2016-12-15] MEDS: POTASSIUM CHLORIDE 10 MEQ TABLET PO SCH (10:30)
[2016-12-15] MEDS: FEXOFENADINE 180 MG TABLET PO SCH (10:31)
[2016-12-15] MEDS: predniSONE 10 MG TABLET PO SCH (10:31)
[2016-12-15] MEDS: CALCIUM (CARBONATE) 600 MG TABLET PO SCH (10:31)
[2016-12-15] MEDS: FLUTICASONE 50 MCG NASAL SPRAY 16 GM BOTTLE BOTH NARES SCH (10:32)
[2016-12-15] MEDS: BUDESONIDE/FORMOTEROL 160-4.5 INHALER 6 GM INH SCH (10:32)
--- NOTE | 2016-12-15 10:35 | Fluoroscopy Report ---
FL small bowel series Indication: Anemia and weight loss. Small bowel follow-through: Plain film and fluoroscopic imaging of the abdomen performed after ingesting contrast. Fluoroscopy time 37 seconds. Transit time to the cecum is 45 minutes. Moderate hiatal hernia noted. Gastric features are unremarkable. No small bowel filling defects, mass or diverticula identified. Tip of the cecum is overlying multiple loops of bowel and with spot imaging, appears to be a grossly unremarkable. Impression: Moderate hiatal hernia. Otherwise negative small bowel follow-through. PROCEDURE INTERPRETED AT [facility] DEPARTMENT OF RADIOLOGY Final Report Signed by: Juancarlos Alnozo M.D.
[2016-12-15] MEDS: PANTOPRAZOLE 40 MG VIAL IV SCH (10:55)
[2016-12-16] MEDS ORDERED: PANTOPRAZOLE 40 MG TABLET PO SCH (09:00)
--- NOTE | 2016-12-17 12:51 | Pathology Report from [facility] ---
ACCESSION # : [id number] PATIENT NAME : Gilberto Ruiz ORDERING DR : JOSEPHINE ADEN MD CLINICAL HX: Iron deficiency anemia POST-OP DX: Same SPECIMEN INFO: Transverse colon polyp GROSS DESCRIPTION: Received in one container labeled "TRANSVERSE COLON" consists of one piece of white davis tissue measuring .3 x .3 x .2 submitted in one cassette. DIAGNOSIS FOR GILBERTO RUIZ: TRANSVERSE COLON BIOPSY: Tubular adenoma. SERVICE DATE: 12/15/2016 REPORT DATE: 12/17/2016 PATHOLOGIST: Angie Zabala III, M.D. MTDD
== END 2016-12-15 12:00 | disposition home or self-care (01) | DRG 381 ==
LOC: N.5E 09:36
PROVIDERS: ADMIT Internal Medicine Pulmonary Disease; ATTEND Internal Medicine Pulmonary Disease